=== PATIENT | female | born 1950 | race Caucasian/White ===

== ENCOUNTER 2016-06-21 07:53 | Inpatient (IN) | payer MEDICARE, MEDICAID ==
--- NOTE | 2016-06-12 10:50 | Rehab Joint Replacement Pre-Op ---
Rehab Joint Replacement Pre-Op - Pre-Op Visit Reviewed Items Scheduled for Post Op Visit: Yes Scheduled Post Op Visit Date: 06/25/16 Kurtis Hose/Garment Measurement TKR - Knee High: Yes Kurtis Hose/Garment Measure THR - Thigh High: No Exercise Reviewed: Yes Stair Climbing: Yes Cane/Walker/Crutch Training: Yes (training with walker on level surfaces, stairs , curbs, transfers (bed, chair, car).) Vend Equipment - Cane or Walker and OT Kit: N/A List of Venders in the Area: No (needs no supplies.) Shower Chair Transfers: Yes Car Transfers: Yes Bed Transfers: Yes Medical History Forms Issued: Yes Functional Scale Forms Issued: Yes (Pt did well. she has had 2 THAs in the past , has all the equipment and no difficulty with pre-op education.)
[~2016-06-21 07:53] MED LIST: ACETAMINOPHEN 1000MG/100 ML PREMIX IV ONE; CEFAZOLIN 2 Gram 50 ML IVPB ONE; FAMOTIDINE 20MG TABLET PO ONE; MECLIZINE 25 MG TABLET PO ONE; METOCLOPRAMIDE 10 MG TABLET PO ONE
[2016-06-21] MEDS ORDERED: MAGNESIUM HYDROXIDE 30 ML UDC PO PRN (11:30)
[2016-06-21] MEDS ORDERED: HYDROMORPHONE HCL 2 MG/ML VIAL IM PRN (11:30)
[2016-06-21] MEDS ORDERED: SENNOSIDES/DOCUSATE SODIUM UD CAPSULE PO PRN (11:30)
[2016-06-21] MEDS ORDERED: ZOLPIDEM TARTRATE 5 MG TABLET PO PRN (11:30)
[2016-06-21] MEDS ORDERED: HYDROMORPHONE HCL 1 MG/ML CPJ IM PRN (11:30)
[2016-06-21] MEDS ORDERED: TRAMADOL HCL 50 MG TABLET PO PRN ×2 (11:30)
[2016-06-21] MEDS ORDERED: ONDANSETRON HCL IV 4 MG/2 ML VIAL IVP PRN (11:30)
[2016-06-21] MEDS ORDERED: OXYCODONE HCL 5 MG TABLET PO PRN (11:30)
[2016-06-21] MEDS ORDERED: AL HYDROX/MAG HYDROX 30ML UD PO PRN (11:30)
[2016-06-21] MEDS ORDERED: DIPHENHYDRAMINE HCL 25 MG CAPSULE PO PRN (11:30)
[2016-06-21] MEDS ORDERED: METOCLOPRAMIDE HCL 10 MG/2 ML VIAL IVP PRN (11:30)
[2016-06-21] MEDS ORDERED: RINGERS SOLUTION,LACTATED 1,000 ML IV PRN (12:02)
[2016-06-21] MEDS: HYDROCODONE/APAP 7.5/325MG TABLET PO PRN (12:11)
[2016-06-21] MEDS: DOCUSATE SODIUM 100 MG CAPSULE PO SCH ×2 (12:36→22:54)
[2016-06-21] MEDS ORDERED: TRANEXAMIC ACID 1,000 MG in 0.9 % SODIUM CHLORIDE 100ML 100 ML IVPB ONE (13:00)
[2016-06-21] MEDS ORDERED: TRANEXAMIC ACID 1,000 MG/10 ML ML IV ONE (14:37)
[2016-06-21] MEDS ORDERED: BUPIVACAINE LIPOSOME 266MG/20ML VIAL IV ONE (14:37)
[2016-06-21] MEDS ORDERED: BUPIVACAINE 0.25% W/EPI MPF 30ML VIAL IVP ONE (14:37)
[2016-06-21] MEDS ORDERED: HYDROMORPHONE HCL 2 MG/ML VIAL IV ONE (14:37)
[2016-06-21] MEDS ORDERED: SUFENTANIL CITRATE 50 MCG/ML AMPUL IV ONE (14:43)
[2016-06-21] MEDS ORDERED: PROPOFOL 10 MG/ML VIAL IV ONE (14:43)
[2016-06-21] MEDS ORDERED: FENTANYL PF 100MCG/2ML VIAL IV ONE (14:43)
[2016-06-21] MEDS ORDERED: EPHEDRINE SULFATE 50 MG/ML ML IV ONE (14:43)
[2016-06-21] MEDS ORDERED: MIDAZOLAM HCL 2MG/2ML VIAL IV ONE (14:43)
[2016-06-21] MEDS ORDERED: LIDOCAINE 2% MDV (20MG/ML) 20ML VIAL IV ONE (14:43)
[2016-06-21] MEDS ORDERED: SEVOFLURANE 250 ML INH ONE (14:43)
[2016-06-21] MEDS: ACETAMINOPHEN 1,000 MG/100 ML BTL IV SCH (16:07)
[2016-06-21] MEDS: RINGERS SOLUTION,LACTATED 1,000 ML IV SCH (16:08)
--- NOTE | 2016-06-21 16:15 | Rehab Evaluation ---
Patient Information - Patient Information Diagnosis: Left Knee OA Ordered Treatment: PT Evaluate and Treat Status: Initial Evaluation Surgery: Yes (L Knee TKA) Date of Surgery: 06/21/16 History: Detail (Pt. reports history of knee pain and scope prior to TKA. Pt. has underwent two hip replacements, right knee does not give her pain at this time.) Past Med/Dennys Hx Detail: Detail (See additional medical information.) Past Medical/Surgical Hx: PAST MEDICAL/SURGICAL HISTORY Past Surgical History right and left total hip arthroplasty; hernia; tubal ligation; tonsils; PMH - Respiratory Hx Respiratory Disorders Yes Comment: has sinus drainage. nailbeds chronically cyanotic for years sats not affect PMH - Cardiovascular Hx Cardiovascular Disorders Yes Hx Deep Vein Thrombosis Yes: rt legafter childbirth-26 yrs ago Hx Edema Yes: in past-not today Hx Hypotension Yes: in past poss low bp Comment: knees/hip pain PMH - Neuro Hx Neurological Disorders Yes Hx Dizziness Yes: with sinus pro PMH - GI Hx Gastrointestinal Disorders Yes Hx Gastroesophageal Reflux No Hx Ulcer Yes: 20 yrs ago PMH - Hx Genitourinary Disorders No PMH - Endocrine Hx Endocrine Disorders No PMH - Musculoskeletal Hx Musculoskeletal Disorders Yes Hx Arthritis Yes: hip/knee Hx Gout No Hx Osteoporosis Yes PMH - Psych Hx Psychiatric Problems No PMH - Hematology/Oncology Hx Hematology/Oncology Yes Disorders Hx Anemia Yes: in past Hx Cancer Yes: breast Hx Chemotherapy No Hx Radiation Therapy No Comment: no more cancer in breasts; Premorbid Status: Detail (Pt. reports slowly progressive worsening of sx.) Social History: Detail (Pt. plans to stay with her daughter for ~3 weeks after surgery. Pt.'s daughter lives in a ranch style home with 1 step leading into the home, the bathroom contains a raised toilet seat, shower chair, and grab bars. The pt. has a single point cane and front wheeled walker. The pt. plans to attend OP PT at [facility], [place] following inpatient stay.) Precautions: [place], Fall - Time With Patient Total Time Spent With Patient (Min): 55 Treatment Procedures: Detail (Physical therapy evaluation completed. Pt. stood at bedside for 2 minutes with CCG and front wheeled walker. Pt. was instructed to perform bed exercises that consisted of heel slides, ankle pumps, glut sets, and quad sets. Pt. was left supine with call light available, B IPC, CPM LLE, and cryo LLE.) Subjective Information - Subjective Information Per Patient (Pt. reported 5/10 pain from start to finish of evaluation. Pt. denied SOB, nausea, and reported feeling in all toes.) Objective Data - Pain Pain Present: Yes Pain Intensity: 5 Pain Scale Used: Numeric (1 - 10) (5/10) - Mental Status Patient Orientation: Oriented x3 - Visual Perception Appears within normal limits for therapeutic activities - ROM Other (L knee flexion and extension not tested for active ROM; passive extension of 0 degrees and flexion of 60 degrees via CPM. RLE within functional limits all planes.) - Strength/Tone Not within normal limits (Left knee flexion and extension not tested, however, pt. performed I SLR LLE. Left ankle plantarflexion and dorsiflexion 4/5. RLE 5/ 5 grossly. BUE fucntional strength testing grossly.) - Coordination Appears within normal limits for therapeutic activities - Bed Mobility Needs Assist (Pt. required mod assist x1 with supine to seated and seated to supine transfer; pt. required use of trapeeze for bed mobility.) - Transfers Needs Assist (Pt. required min assist x 1 for sit<->stand transfer.) - Balance Balance Sitting: Fair (Pt. required mod assist x1 to maintain upright positioning while seated at bedside.) Balance Standing: Fair (Pt. required mod assist x1 to maintain upright positioning with ~50% BW onto LLE.) - Sensation Intact - Gait Detail (Not assessed.) - ADL's/IADL's Detail (Not assessed.) - Special Tests Yes (Negative Ines's, LLE.) Therapy Assessment - Therapy Assessment Detail (Pt. exhibits LE weakness, ROM impairment, balance impairment, and swelling secondary to surgery.) Patient Education - Patient Education Teaching Topic: Equipment Use, Exercise/Activity, Precautions, Risk Factors Response: Return Demonstration, Verbalize Understanding Teaching Method: Discussion, Demonstration Teaching Recipient: Patient, Family Barriers To Learning: None Problem List - Problem List Physical Therapy Problem List: Detail (1) Balance impairment 2) LE weakness 3) ROM restriction 4) Assistance required with bed mobility and transfer) Goals - Goals Physical Therapy Goals: 1) Pt. will be I with ambulation using AD for more than 50 feet. 2) Pt. will be I with bed mobility and transfer. 3) Pt. will be I with HEP. 4) Pt. will verbalize understanding of precautions, discharge planning and equipment use. Prognosis - Prognosis Good Plan - Plan Physical Therapy Plan: Pt. will be seen 1-2x per day for inpatient PT until goals met, starting 06-21-16.
[2016-06-21] MEDS: CEFAZOLIN 2 Gram 2 GM/50 ML BAG IVPB SCH (18:56)
[2016-06-21] MEDS: FONDAPARINUX 2.5 MG/0.5 ML SYR SQ SCH (19:40)
[2016-06-21] MEDS: OXYCODONE HCL 5 MG TABLET PO PRN (20:10)
[2016-06-22] MEDS: ACETAMINOPHEN 1,000 MG/100 ML BTL IV SCH ×2 (01:38→07:06)
[2016-06-22] MEDS: CEFAZOLIN 2 Gram 2 GM/50 ML BAG IVPB SCH ×2 (02:14→09:23)
[2016-06-22] MEDS: RINGERS SOLUTION,LACTATED 1,000 ML IV SCH (04:20)
[2016-06-22 06:32] LABS: HEMATOCRIT 37.3 % (35.0-47.0); MEAN CELL VOLUME 95.4 fl (81-97); MEAN CORPUSCULAR HEMOGLOBIN 30.7 pg (27-33); MEAN CORPUSCULAR HGB CONC 32.2 g/dl (32-36); MEAN PLATELET VOLUME 10.3 fl (7.4-10.4); PLATELET COUNT 240 K/uL (130-400); RED BLOOD COUNT 3.91 M/uL (3.80-5.40); RED CELL DISTRIBUTION WIDTH 13.6 % (11.5-14.5); WHITE BLOOD COUNT W/O DIFF 11.2 K/uL (4.2-12.2)
[2016-06-22] MEDS: OXYCODONE HCL 5 MG TABLET PO PRN (09:23)
[2016-06-22] MEDS: DOCUSATE SODIUM 100 MG CAPSULE PO SCH (09:24)
--- NOTE | 2016-06-22 11:29 | Physical Therapy Tx Note ---
Physical Therapy Tx Note - Treatment Note Tolerated: Good (Pt reported pain decrease from 5/10 to 4/10 from start to finish of tx. Pt. denied nausea, fatigue, SOB.) Total Time Spent With Patient: 45 Physical Therapy Tx Note: Detail (Pt. I ambulated with SBA for 100 feet with front wheeled walker and exhibited appropriate advancement of walker with operative leg; pt. bore ~50 BW onto operative LE without increased reports of pain. Pt. required use of trapeeze for sit to supine transfer and required min assist with lifting of the operative LE to position to midline of bed. Pt. was left supine with CPM attached and set at 0 degrees extension and 58 degrees flexion. Pt. was left supine with call light available, B IPC, CPM attached, and cryo LLE.) Physical Therapy Problem List: Detail (1) Balance impairment 2) LE weakness 3) ROM restriction 4) Assistance required with bed mobility and transfer) Physical Therapy Goals: 1) Pt. will be I with ambulation using AD for more than 50 feet. 2) Pt. will be I with bed mobility and transfer. 3) Pt. will be I with HEP. 4) Pt. will verbalize understanding of precautions, discharge planning and equipment use. Prognosis: Good Physical Therapy Plan: Pt. will be seen 1-2x per day for inpatient PT until goals met, starting 06-21-16.
--- NOTE | 2016-06-22 11:29 | Operative Note ---
DATE OF SURGERY: 06/21/2016 REFERRING PROVIDER: Brit Luz PA-C PREOPERATIVE DIAGNOSIS: Primary osteoarthritis of the left knee. POSTOPERATIVE DIAGNOSIS: Primary osteoarthritis of the left knee. OPERATIVE PROCEDURE: Left total knee arthroplasty. DESCRIPTION: This 66-year-old female was taken to the operating room and placed in the supine position on the operating room table where general anesthesia was induced. The left lower extremity was elevated. It was prepped with Hibiclens and draped in the usual sterile fashion. It was exsanguinated and the tourniquet inflated to 300 mmHg. All scrubbed personnel wore personal isolation suits. An anterior longitudinal midline incision was made followed by a medial parapatellar arthrotomy incision. Intercondylar drill holes made for the intramedullary alignment dilma and a 5 degree valgus 9 mm cut was made in the distal femur. The wafer of bone was removed. A sizing jig affixed. A size 62.5 was seen to be the appropriate size. A 4-in-1 cutting block was then pinned in 3 degrees of external rotation. The appropriate cuts were made. We then directed our attention to the proximal tibia. An extramedullary alignment guide was used to cut the proximal tibia referencing a 10 mm cut off the lateral tibial plateau, and after the appropriate rotation had been assured, a 3 degree posterior slope cut was made, and the wafer of bone was removed. It was necessary for us to take an additional 2 mm of bone because with the 10 mm cut, we could not get below the sclerotic bone and medial tibial plateau. We then directed our attention to the sizing jig for the proximal tibia. It was found to be a 67. A 71 was a slight overhang. Subsequently, the punch was used. The remnants of menisci and osteophytes were removed from the posterior aspect of the joint. The wound was copiously irrigated with pulsed lavage lactated Ringer's solution. The patella was cut and restored to anatomic height with a 34 x 7.8 mm trial. The trial components were inserted and an 11 mm bearing was seen to be the appropriate size given its full extension. Excellent stability throughout the range of motion in full flexion as well. All trial components were then removed and the wound again copiously irrigated with pulsed lavage lactated Ringer's solution. Exparel was injected into the posterior medial and lateral corners of the joint, and the remainder was then injected into the periosteum and joint capsule, the proximal tibia and distal femur once the final components had been inserted. All components were cemented into place, and all bony surfaces were dried, and the tibia was placed first followed by the insertion of the tibial bearing. Subsequently, the femoral component and patella were inserted. Once the cement had hardened, the knee was again taken through range of motion with excellent stability of the components being identified. A drain was placed through a separate stab incision. The arthrotomy incision was closed with #2 Vicryl. The subcutaneous tissue closed with O-Vicryl, and the skin was stapled. Sterile dressings were applied with a Polar Care, and the patient was taken to the recovery room in satisfactory condition. GROSS PATHOLOGY: This patient demonstrated extremely severe osteoarthritis of the patellofemoral joint. In addition, there was full-thickness articular cartilage defects in the medial femoral condyle and chondrocalcinosis also seen deposited on the menisci as well as the medial and lateral femoral condyles. CC: SINDY Wheat
[2016-06-22] MEDS ORDERED: HYDROCODONE/APAP 7.5/325MG TABLET PO PRN (11:30)
[2016-06-22] MEDS ORDERED: ACETAMINOPHEN 325 MG TAB PO PRN (11:30)
--- NOTE | 2016-06-22 12:55 | Rehab Evaluation ---
Patient Information - Patient Information Diagnosis: Left Knee OA Ordered Treatment: OT Evaluate and Treat Status: Initial Evaluation Surgery: Yes (L Knee TKA) Date of Surgery: 06/21/16 History: Detail (Pt. reports history of knee pain and scope prior to TKA. Pt. has underwent two hip replacements, right knee does not give her pain at this time.) Past Medical/Surgical Hx: PAST MEDICAL/SURGICAL HISTORY Past Surgical History right and left total hip arthroplasty; hernia; tubal ligation; tonsils; PMH - Respiratory Hx Respiratory Disorders Yes Comment: has sinus drainage PMH - Cardiovascular Hx Cardiovascular Disorders Yes Hx Deep Vein Thrombosis Yes: rt legafter childbirth-26 yrs ago Hx Edema Yes: in past-not today Hx Hypotension Yes: in past poss low bp Comment: knees/hip pain PMH - Neuro Hx Neurological Disorders Yes Hx Dizziness No: with sinus pro PMH - GI Hx Gastrointestinal Disorders Yes Hx Gastroesophageal Reflux No Hx Ulcer Yes: 20 yrs ago PMH - Hx Genitourinary Disorders No PMH - Endocrine Hx Endocrine Disorders No PMH - Musculoskeletal Hx Musculoskeletal Disorders Yes Hx Arthritis Yes: hip/knee Hx Gout No Hx Osteoporosis Yes PMH - Psych Hx Psychiatric Problems No PMH - Hematology/Oncology Hx Hematology/Oncology Yes Disorders Hx Anemia Yes: in past Hx Cancer Yes: breast Hx Chemotherapy No Hx Radiation Therapy No Comment: no more cancer in breasts; Premorbid Status: Detail (Pt. reports slowly progressive worsening of sx.) Social History: Detail (Pt. plans to stay with her daughter for ~3 weeks after surgery. Pt.'s daughter lives in a ranch style home with 1 step leading into the home, the bathroom contains a raised toilet seat, tub/shower combination with a shower chair, and grab bars. The pt. has a single point cane, wheelchair and front wheeled walker. The pt. plans to attend OP PT at [facility] following inpatient stay.) Precautions: [place], Fall - Time With Patient Total Time Spent With Patient (Min): 25 Treatment Procedures: Detail (OT eval low complexity) Subjective Information - Subjective Information Per Patient, Other (Per daughter and spouse) Objective Data - Pain Pain Present: Yes (/10 in left knee) - Mental Status Patient Orientation: Oriented x3 - Visual Perception Appears within normal limits for therapeutic activities - ROM Within normal limits (Oneil UE AROM WNL) - Strength/Tone Within normal limits (Oneil UE MMT WNL) - Coordination Appears within normal limits for therapeutic activities - ADL's/IADL's Detail (Pt reports her daughter will be available for assistance with ADLs after discharge.) Therapy Assessment - Therapy Assessment Detail (Pt does not have any concerns about ADLs post-discharge as she is staying with her daughter.) Problem List - Problem List Physical Therapy Problem List: Detail (1) Balance impairment 2) LE weakness 3) ROM restriction 4) Assistance required with bed mobility and transfer) Occupational Therapy Problem List: Detail (No OT problems identified at this time.) Goals - Goals Physical Therapy Goals: 1) Pt. will be I with ambulation using AD for more than 50 feet. 2) Pt. will be I with bed mobility and transfer. 3) Pt. will be I with HEP. 4) Pt. will verbalize understanding of precautions, discharge planning and equipment use. Occupational Therapy Goals: No OT goals identified at this time. Prognosis - Prognosis Good Plan - Plan Physical Therapy Plan: Pt. will be seen 1-2x per day for inpatient PT until goals met, starting 06-21-16. Occupational Therapy Plan: No further OT recommended at this time. Thank you for this referral.
[2016-06-22] MEDS: HYDROCODONE/APAP 7.5/325MG TABLET PO PRN (13:46)
--- NOTE | 2016-06-22 16:00 | Physical Therapy Tx Note ---
Physical Therapy Tx Note - Treatment Note Tolerated: Good (Pt. reported pain decrease from 8/10 at start of tx to 5/10 at conclusion. Pt. denied SOB, fatigue, and nausea. Pt. reported willingness to be D/C to home environment.) Total Time Spent With Patient: 45 Physical Therapy Tx Note: Detail (Pt. I ambulated with front wheeled walker for ~110 feet; pt. requested break before stair training. Pt. I ascended and descended three steps with front wheeled walker and demonstrated good understanding of walker placement and how to advance the appropriate LE. Pt. performed sit<->stand, seated<->supine with minimal assistance from daughter to lift the operative LE. Pt. is to live with daughter following inpatient stay and the daughter will be able to provide support in the home environment until patient is safe to I transfer. Pt. performed SLR attempt x3, seated heel slides , and supine quad sets for reproduction of home program. Pt. expressed understanding of car transfer, bathroom transfer, and positioning of LE while seated and supine.) Physical Therapy Problem List: Detail (Pt. is appropriate for D/C from inpatient PT.) Physical Therapy Goals: 1) Pt. will be I with ambulation using AD for more than 50 feet. 2) Pt. will be I with bed mobility and transfer. 3) Pt. will be I with HEP. 4) Pt. will verbalize understanding of precautions, discharge planning and equipment use. Prognosis: Good (Pt. has met all inpatient goals and is appropriate for D/C from inpatient PT.) Physical Therapy Plan: D/C pt. from inpatient PT and continue therapy via outpatient services at [facility] on 06/25/16.
[2016-06-22] MEDS: FONDAPARINUX 2.5 MG/0.5 ML SYR SQ SCH (17:21)
--- NOTE | 2016-06-25 09:53 | Discharge Summary ---
DATE OF ADMISSION: 06/21/2016 DATE OF DISCHARGE: 06/22/2016 ADMITTING DIAGNOSIS: Osteoarthritis of the left knee. DISCHARGE DIAGNOSIS: Osteoarthritis of the left knee. OPERATIVE PROCEDURE: Elective left total knee arthroplasty. DESCRIPTION: This 66-year-old female was admitted to the hospital for total knee arthroplasty and tolerated the operative procedure well. Drain was removed the first postoperative day. She cleared physical therapy and was ready for discharge. The pain was under control with [place] 7.5 mg. She will be discharged with outpatient physical therapy. She will wear her GUEVARA hose during the day and remove them at night. She was given a prescription for [place] 7.5/325, #80, 1-2 every 6 hours as necessary for pain. She will take aspirin 325 mg b.i.d. for 2 weeks and follow up in the clinic in 2 weeks. Routine wound care instructions were given. Should she have any problems prior to being seen, she was instructed to call my office. GRE[place]
== END 2016-06-22 17:15 | disposition home or self-care (01) | DRG 470 ==
LOC: MEDSURG 07:53
PROVIDERS: ADMIT Orthopaedic Surgery; ATTEND Orthopaedic Surgery
PROC: 0SRD0J9 Replacement of Left Knee Joint with Synthetic Substitute, Cemented, Open Approach (ICD-10-PCS; principal; 2016-06-21 09:30)
DX: M17.12 Unilateral primary osteoarthritis, left knee (principal)
CPT/HCPCS: 85025; 94760; 97116; 97165; 97530; J7120